=== PATIENT | male | born 1960 | race Caucasian/White ===

== ENCOUNTER 2018-04-22 13:30 | Emergency (ER) | payer OTHER ==
[~2018-04-22] VITALS: Ht 188 cm; Wt 104.5 kg
[2018-04-22 13:30] VITALS: BP 137/94
[2018-04-22] MEDS ORDERED: ALEV220C2 PO (13:40)
[2018-04-22] MEDS ORDERED: bystolic PO (13:40)
[2018-04-22] MEDS ORDERED: atorvastatin PO (13:40)
== END 2018-04-22 14:14 | disposition home or self-care (01) ==
LOC: M ED 13:30
DX: S61.233A Puncture wound without foreign body of left middle finger without damage to nail, initial encounter (principal); W45.8XXA Other foreign body or object entering through skin, initial encounter; Y92.59 Other trade areas as the place of occurrence of the external cause; Y93.F9 Activity, other caregiving; Z77.21 Contact with and (suspected) exposure to potentially hazardous body fluids; I10 Essential (primary) hypertension; E78.5 Hyperlipidemia, unspecified